=== PATIENT | female | born 1995 | race Caucasian/White ===

== ENCOUNTER 2017-02-14 21:08 | Emergency (ER) | payer SELFPAY ==
[~2017-02-14] VITALS: Ht 170.2 cm; Wt 71.3 kg
[2017-02-14 21:23] VITALS: TEMP 36.7; Ht 170.2 cm; Wt 71.3 kg
[2017-02-14] MEDS ORDERED: LIDOCAINE/EPINEPH/TETRACAINE 1 EA SYR EXT STA (21:38)
[2017-02-14] MEDS ORDERED: SODIUM CHLORIDE 0.9% 1000ML 1,000 ML IV STA (21:38)
[2017-02-14] MEDS ORDERED: ONDANSETRON INJ 2 MG/ML 2 ML VIAL IV STA (21:38)
[2017-02-14] MEDS ORDERED: HYDROmorphone INJ 1 MG/ML SYR IV STA ×2 (21:38→23:24)
[2017-02-14] MEDS ORDERED: LIDOCAINE/EPINEPHRINE 1% 20 ML VIAL INFIL STA (21:38)
[2017-02-14] MEDS ORDERED: ETON1IMP2 INTRAD (21:40)
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
[2017-02-14] MEDS ORDERED: BACITRACIN OINT 15 GM TUBE ONE (22:37)
[2017-02-14] MEDS ORDERED: METOCLOPRAMIDE HCL INJ 5 MG/ML 2 ML VIAL IV STA (23:24)
[2017-02-14] MEDS ORDERED: CEFAZOLIN SOD 1000MG/55 ML D5W IV STA (23:58)
[2017-02-15] MEDS ORDERED: PERCOCET HOME PACK PO ONE
[2017-02-15] MEDS ORDERED: CEPH500C PO (00:03)
[2017-02-15] MEDS ORDERED: OXYC-57 PO (00:05)
[2017-02-15 00:22] VITALS: BP 122/76; PULSE 92; O2SAT 99
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
== END 2017-02-15 00:44 | disposition home or self-care (01) ==
LOC: EDUNIT# 21:08 → C.EDB 21:12
DX: S80.211A Abrasion, right knee, initial encounter (principal); S51.031A Puncture wound without foreign body of right elbow, initial encounter; S40.211A Abrasion of right shoulder, initial encounter; V28.1XXA Motorcycle passenger injured in noncollision transport accident in nontraffic accident, initial encounter

== ENCOUNTER → 2017-02-17 | Outpatient (CLI) | payer OTHER ==
[~2017-02-17] MED LIST: CEPH500C PO; ETON1IMP2 INTRAD; OXYC-57 PO
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
== END | disposition home or self-care (01) ==
LOC: C.RDSM 11:52
PROVIDERS: ATTEND Physician Assistant
DX: S51.011A Laceration without foreign body of right elbow, initial encounter (principal); X58.XXXA Exposure to other specified factors, initial encounter

== ENCOUNTER 2021-10-09 13:43 | Inpatient (IN) ==
[2021-10-09] MEDS ORDERED: TERBUTALINE SULFATE 1 MG/ML VIAL ONE (13:58)
[2021-10-09] MEDS ORDERED: CITRIC ACID/SODIUM CITRATE 15 ML UDC PO SCH (14:00)
[2021-10-09] MEDS ORDERED: ceFAZolin 2000MG 2,000 MG/15 ML SYR IV SCH (14:00)
[2021-10-09] MEDS ORDERED: fentaNYL citrate 100 MCG/2 ML VIAL ONE (14:01)
[2021-10-09] MEDS ORDERED: MoRPHine SULFATE PF 1 MG/ML 10 ML AMP/VIAL ONE (14:02)
--- NOTE | 2021-10-09 14:02 | Anesthesiology Consultation ---
Date of Service October 09, 2021 Assessment & Plan (1) Encounter for pre-operative examination: Chart Review Chart Review: Acceptable Risk for Surgery and Patient NOT seen in Pre Admission Testing Consults Requested none History Allergies Allergy/AdvReac Type Severity Reaction Status Date / Time No Known Allergies Allergy Unverified 02/14/17 21:40 Medications Home Medications Medication Instructions Recorded Confirmed Last Taken ETONOGESTREL (NEXPLANON) 68 mg INTRAD UD #0 02/14/17 Unknown
[2021-10-09] MEDS ORDERED: OXYTOCIN 30 UNITS/500 ML BAG IV PRN (14:03)
[2021-10-09] MEDS ORDERED: LACTATED RINGER'S 1,000 ML IV PRN (14:03)
[2021-10-09] MEDS ORDERED: LACTATED RINGER'S 1,000 ML IV SCH ×4 (14:15→16:00)
[2021-10-09 14:37] LABS: Basophils # (auto) 0.03 K/uL (0-0.2); Basophils % (auto) 0.2 %; Eosinophils # (auto) 0.14 K/uL (0-0.5); Eosinophils % (auto) 1.1 %; Hematocrit (blood only) 36.9 % (37-47); Hemoglobin 12.8 g/dL (12.0-16.0); Immature Granulocytes # (auto) 0.08 K/uL (0.00-0.02); Immature Granulocytes % (auto) 0.6 %; Lymphocytes # (auto) 4.15 K/uL (1.2-3.4); Lymphocytes % (auto) 32.7 %; Mean Corpuscular Hemoglobin 32.8 pg (25-34); Mean Corpuscular Hgb Conc 34.7 g/dL (32-36); Mean Corpuscular Volume 94.6 fL (80-100); Mean Platelet Volume 9.9 fL (7.4-10.4); Monocytes # (auto) 1.03 K/uL (0.11-0.59); Monocytes % (auto) 8.1 %; Neutrophils # (auto) 7.27 K/uL (1.4-6.5); Neutrophils % (auto) 57.3 %; Platelet Count 283 K/uL (130-400); RDW Coefficient of Variation 12.7 % (11.5-14.5); RDW Standard Deviation 43.3 fL (36.4-46.3)
[2021-10-09] MEDS ORDERED: PROMETHAZINE HCL 25 MG in SODIUM CHLORIDE 0.9% 50 ML IV PRN (15:13)
[2021-10-09] MEDS ORDERED: NALOXONE HCL 0.4 MG/1 ML VIAL/CARP IV PRN (15:13)
[2021-10-09] MEDS ORDERED: ONDANSETRON INJ 2 MG/ML 2 ML VIAL IV PRN (15:13)
[2021-10-09] MEDS ORDERED: LACTATED RINGER'S 500 ML IV PRN (15:13)
[2021-10-09] MEDS ORDERED: MoRPHine SULFATE PF 1 MG/ML 10 ML AMP/VIAL INT SPINAL ONE (15:13)
[2021-10-09] MEDS ORDERED: NALOXONE HCL 0.08 MG in SYRINGE 1.8 ML IV PRN (15:13)
[2021-10-09] MEDS ORDERED: NALBUPHINE HCL INJ 10 MG/ML AMP IV PRN (15:13)
[2021-10-09] MEDS ORDERED: HYDROmorphone INJ 0.5 MG/0.5 ML SYR IV PRN (15:13)
[2021-10-09] MEDS ORDERED: ePHEDrine sulfate 50 MG/ML AMP IV PRN (15:13)
[2021-10-09] MEDS ORDERED: diphenhydrAMINE 50 MG/ML VIAL IV PRN (15:13)
[2021-10-09] MEDS ORDERED: NALOXONE HCL 1 MG in SODIUM CHLORIDE 0.9% 1000ML 1,000 ML IV PRN (15:13)
[2021-10-09] MEDS ORDERED: DC INTRASPINAL MORPHINE SCH (15:15)
[2021-10-09] MEDS ORDERED: SODIUM CHLORIDE 0.9% 1000ML 1,000 ML IV SCH (15:15)
[2021-10-09] MEDS ORDERED: NO NARCOTICS OR SEDATIVES SCH (15:15)
[2021-10-09] MEDS ORDERED: PHENYLEPHRINE 100MCG/ML 5ML SYR ONE (15:33)
[2021-10-09] MEDS ORDERED: ePHEDrine sulfate 50 MG/ML SYR ONE (15:33)
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
[2021-10-09] MEDS ORDERED: SENNA 8.6 MG TAB PO PRN (15:47)
[2021-10-09] MEDS ORDERED: BENZOCAINE 20% AER SPR 82.5 GM CAN EXT PRN (15:47)
[2021-10-09] MEDS ORDERED: DIPHTHERIA/TETANUS/PERTUSSIS 0.5 ML SYR/VIAL IM ONE (15:47)
[2021-10-09] MEDS ORDERED: HYDROCORTISONE ACETATE 25 MG SUPP PR PRN (15:47)
[2021-10-09] MEDS ORDERED: MAGNESIUM HYDROXIDE SUSP 30 ML UDC PO PRN (15:47)
--- NOTE | 2021-10-09 15:52 | Anesthesiology Progress Note ---
Date of Service October 09, 2021 Anesthesia Post Procedure Vital Signs Vital Signs: Pulse BP Pulse Ox 10/09/21 15:51 50 L 10/09/21 15:48 54 L 94 10/09/21 15:46 68 96 10/09/21 15:43 56 L 115/58 L 10/09/21 15:41 63 92 Transfer of Care Handoff Completed per policy Notes Mental Status: alert / awake / arousable and participated in evaluation Patient Amnestic to Procedure: Yes Nausea / Vomiting: adequately controlled Pain: adequately controlled Airway Patency, RR, SpO2: stable & adequate BP & HR: stable & adequate Hydration State: stable & adequate Anesthetic Complications: no major complications apparent and Pt Satisfied with anesthetic care
[2021-10-09] MEDS ORDERED: PATIENT'S HEIGHT AND/OR WEIGHT NEEDED SCH (16:15)
[2021-10-09] MEDS: KETOROLAC 30 MG/ML VIAL IV PRN (16:24)
[2021-10-09 16:53] LABS: Base Excess Cord Arterial Bld -3.8 mEq/L (-9-1.8); CO2 Cord Arterial Blood 60 mmHg (39.1-73.5); HCO3 Cord Arterial Blood 25 mmol/L (19.7-28.5); Oxygen Sat Cord Arterial Blood < 60.0 % (<60); PO2 Cord Arterial Blood 15 mmHg (4.1-31.7); pH Cord Arterial Blood 7.24 (7.1-7.38)
[2021-10-09 16:54] LABS: Base Excess Cord Venous Blood -3.6 mEq/L (-7.7-1.9); Cord Venous Blood HCO3 23 mmol/L (18.4-26.8); Cord Venous Blood PCO2 46 mmHg (30.4-57.2); Cord Venous Blood PO2 30 mmHg (14.1-43.3); Cord Venous Blood pH 7.31 (7.20-7.44)
[2021-10-09] MEDS: SIMETHICONE 80 MG CHEW PO SCH ×2 (17:35→21:44)
--- NOTE | 2021-10-09 17:38 | Operative Report (OR) ---
DATE OF SURGERY: 10/09/2021. This is a surgery note. INDICATION FOR SURGERY: This is a 26-year-old , at 34 weeks who has received care at [facility]. The patient experienced spontaneous rupture of membranes this morning and so presented to [facility]. On arrival to [facility] Labor and Delivery, she wa s found to be grossly ruptured. Cervical exam showed she was 8 cm dilated with a foot presentation. The patient therefore was sent to the operating room for immediate section. PREOPERATIVE DIAGNOSIS: rupture of membranes. POSTOPERATIVE DIAGNOSIS: rupture of membranes. OPERATION: Primary section. SURGEON: Nhan Jorge MD. DIRECTOR OF BUSINESS APPLICATIONS: Prisca Mckeon RN. ANESTHESIA: Spinal. DRAINS: None. ESTIMATED BLOOD LOSS: 600 mL. URINE OUTPUT: 100 mL. INTRAVENOUS FLUIDS: 1100 mL. SPECIMENS: Placenta, cord blood and cord gases. INTRAOPERATIVE COMPLICATIONS: None. PATIENT CONDITION: Stable. DISPOSITION: Postanesthesia care unit. ATTESTATION: I performed the entire procedure. DESCRIPTION OF PROCEDURE: The patient was taken to the operating room where she was prepped and drap ed in normal sterile fashion in dorsal position. Pfannenstiel incision was made and carried down to the fascia with a scalpel. Fascia was incised in the midline and extended laterally on both sides. Fascia was sharply dissected off the rectus abdominis muscle superiorly and inferiorly. The rectus a bdominis muscle was . Once inside the abdomen, peritoneum was bluntly as well. An Nirmal retractor was placed in the abdomen to help retract and provide good visualization. The vesicouterine peritoneum was sharply dissected off the lower segment of the uterus. Transverse i ncision was made with a scalpel from the uterus and extended laterally on both sides with bandage sci ssors. Breech maneuvers were performed and infant's buttocks were grabbed and delivered using breech maneuvers. Buttocks were delivered followed by the legs and upper abdomen, hands and head. There w as some initial difficulty delivering the buttocks because the patient was diabetic and infant was la rger than anticipated for 34 weeks. However, the was delivered and the cord was clamped and c ut and handed over to the waiting pediatric team. Please refer to pediatrics for resuscitation proce dures. Placenta was manually removed. Uterus was exteriorized and cleared of all clot and debris. Uterus w as closed in 2 layers using Vicryl stitch. There was good hemostasis post-repair. Uterus was return ed into the abdominal cavity after a copious amount of irrigation used to irrigate the abdomen. The vesicouterine peritoneum was reapproximated using plain suture. Peritoneum was closed using plai n suture. The fascia was closed in a running fashion using 1 PDS. Subcutaneous space was irrigated and approximated using plain suture. Skin was closed with ghassan. Abdomen was dressed with a JARAD dressing. All instruments were removed from the abdomen including sponges, needles, and retractors and accounte d for x2. The patient is sent to recovery in stable condition. Job ID: [id number]
[2021-10-09] MEDS: OXYTOCIN 20 UNITS in LACTATED RINGER'S 1,000 ML IV SCH (18:54)
[2021-10-09] MEDS: DOCUSATE SODIUM 100 MG CAP PO SCH (21:44)
[2021-10-10] MEDS: KETOROLAC 30 MG/ML VIAL IV PRN ×2 (00:12→06:02)
[2021-10-10] MEDS: OXYTOCIN 20 UNITS in LACTATED RINGER'S 1,000 ML IV SCH (03:04)
[2021-10-10] MEDS ORDERED: LACTATED RINGER'S 1,000 ML IV ONE (05:52)
[2021-10-10] MEDS ORDERED: CITRIC ACID/SODIUM CITRATE 15 ML UDC PO SCH (06:00)
[2021-10-10 07:03] LABS: Basophils # (auto) 0.02 K/uL (0-0.2); Basophils % (auto) 0.1 %; Eosinophils # (auto) 0.01 K/uL (0-0.5); Eosinophils % (auto) 0.1 %; Hematocrit (blood only) 31.8 % (37-47); Immature Granulocytes # (auto) 0.05 K/uL (0.00-0.02); Immature Granulocytes % (auto) 0.3 %; Lymphocytes # (auto) 1.78 K/uL (1.2-3.4); Lymphocytes % (auto) 11.9 %; Mean Corpuscular Hemoglobin 33.3 pg (25-34); Mean Corpuscular Hgb Conc 34.6 g/dL (32-36); Mean Corpuscular Volume 96.4 fL (80-100); Mean Platelet Volume 9.4 fL (7.4-10.4); Monocytes # (auto) 1.01 K/uL (0.11-0.59); Monocytes % (auto) 6.8 %; Neutrophils # (auto) 12.09 K/uL (1.4-6.5); Neutrophils % (auto) 80.8 %; Platelet Count 235 K/uL (130-400); RDW Standard Deviation 45.1 fL (36.4-46.3); White Blood Count 14.96 K/uL (4.8-10.8)
[2021-10-10] MEDS: DOCUSATE SODIUM 100 MG CAP PO SCH ×2 (09:09→21:00)
[2021-10-10] MEDS: cephALEXin 500 MG CAP PO SCH ×3 (09:09→18:10)
[2021-10-10] MEDS: metroNIDAZOLE 500 MG TAB PO SCH ×2 (09:09→15:43)
[2021-10-10] MEDS: PRENATAL VITAMIN 1 TAB PO SCH (09:09)
[2021-10-10] MEDS: FERROUS SULFATE 325 MG TAB PO SCH (09:10)
[2021-10-10] MEDS: SIMETHICONE 80 MG CHEW PO SCH ×4 (09:10→21:00)
[2021-10-10] MEDS ORDERED: diphenhydrAMINE Capsule 25 MG CAP PO PRN (09:13)
[2021-10-10] MEDS ORDERED: ONDANSETRON INJ 2 MG/ML 2 ML VIAL IV PRN (09:13)
[2021-10-10] MEDS ORDERED: PROMETHAZINE HCL 25 MG in SODIUM CHLORIDE 0.9% 50 ML IV PRN (09:13)
[2021-10-10] MEDS ORDERED: diphenhydrAMINE 50 MG/ML VIAL IV PRN (09:13)
--- NOTE | 2021-10-10 11:02 | Obstetrical Progress Note ---
Date of Service October 10, 2021 Subjective Ambulation: limited ambulation Voiding: no voiding problems Passing Gas:: Yes Diet Tolerance:: regular diet Lochia:: Small Feeding Type:: breast feeding Physical Exam Constitutional WD/WN, vitals as above Gastrointestinal (Abdomen) incision c/d/i abdomen soft and non-tender no edema neg Filiberto's Neurologic patellar DTR's 2+ bilat, sensation intact Psychiatric A+Ox3, euthymic affect Results & Data ([facility]) Vital Signs (Past 12 Hours) Vital Signs Temp Pulse Resp BP Pulse Ox 10/10/21 07:40 37.1 C 88 18 116/72 94 10/10/21 06:06 20 97 10/10/21 05:19 16 94 10/10/21 04:30 16 94 10/10/21 03:00 36.5 C 76 18 117/69 97 10/10/21 02:45 18 96 10/10/21 01:15 18 94 10/10/21 00:20 20 98 10/09/21 23:30 36.7 C 76 20 122/75 99
[2021-10-10] MEDS: IBUPROFEN 600 MG TAB PO PRN ×2 (12:18→18:09)
[2021-10-10] MEDS: oxyCODONE/ACETAMINOPHEN 5mg/325mg TAB PO PRN ×2 (13:34→18:09)
[2021-10-10] MEDS ORDERED: bisacodyL 5 MG TABEC PO SCH (20:00)
[2021-10-11] MEDS ORDERED: bisacodyL 10 MG SUPP PR PRN
[2021-10-11] MEDS: cephALEXin 500 MG CAP PO SCH ×5 (00:30→20:35)
[2021-10-11] MEDS: metroNIDAZOLE 500 MG TAB PO SCH ×4 (02:00→22:34)
[2021-10-11] MEDS: IBUPROFEN 600 MG TAB PO PRN ×4 (04:23→18:56)
[2021-10-11 06:14] LABS: Hematocrit (blood only) 31.6 % (37-47); Hemoglobin 10.9 g/dL (12.0-16.0)
[2021-10-11] MEDS: PRENATAL VITAMIN 1 TAB PO SCH (08:58)
[2021-10-11] MEDS: SIMETHICONE 80 MG CHEW PO SCH ×4 (08:58→20:35)
[2021-10-11] MEDS: oxyCODONE/ACETAMINOPHEN 5mg/325mg TAB PO PRN ×3 (08:59→18:55)
[2021-10-11] MEDS: FERROUS SULFATE 325 MG TAB PO SCH (08:59)
[2021-10-11] MEDS: DOCUSATE SODIUM 100 MG CAP PO SCH ×2 (08:59→20:35)
--- NOTE | 2021-10-11 13:43 | Obstetrical Progress Note ---
Date of Service October 11, 2021 Assessment & Plan Admission and Anticipated Discharge Date Admission Date: October 09, 2021 Subjective Patient is seen and examined. She feels well, no complaints. Pain is under control with oral meds. Ambulating without dizziness Voiding without difficulty Tolerating regular diet with out N&V Flatus + BM + Bleeding is minimal No fever/ chills/ CP/ SOB/ N&V/ Leg pain Breast and bottle feeding without problems Vital Signs Temp Pulse Resp BP Pulse Ox 10/11/21 04:00 37.1 C 69 18 123/80 10/10/21 20:00 36.5 C 73 18 134/88 10/10/21 16:35 36.9 C 86 20 118/76 97 Lab Results 10/09/21 10/09/21 10/09/21 Range/Units 14:04 14:04 15:47 WBC 12.70 H (4.8-10.8) K/uL RBC 3.90 L (4.2-5.4) M/uL Hgb 12.8 (12.0-16.0) g/dL Hct 36.9 L (37-47) % MCV 94.6 (80-100) fL MCH 32.8 (25-34) pg MCHC 34.7 (32-36) g/dL RDW Std Deviation 43.3 (36.4-46.3) fL RDW Coeff of Yvonne 12.7 (11.5-14.5) % Plt Count 283 (130-400) K/uL MPV 9.9 (7.4-10.4) fL Immature Gran % (Auto) 0.6 % Neut % (Auto) 57.3 % Lymph % (Auto) 32.7 % [place] % (Auto) 8.1 % Eos % (Auto) 1.1 % Baso % (Auto) 0.2 % Neut # (Auto) 7.27 H (1.4-6.5) K/uL Lymph # (Auto) 4.15 H (1.2-3.4) K/uL [place] # (Auto) 1.03 H (0.11-0.59) K/uL Eos # (Auto) 0.14 (0-0.5) K/uL Baso # (Auto) 0.03 (0-0.2) K/uL Immature Gran # (Auto) 0.08 H (0.00-0.02) K/uL Cord ABG pH 7.24 (7.1-7.38) Cord ABG pCO2 60 (39.1-73.5) mmHg Cord ABG pO2 15 (4.1-31.7) mmHg Cord ABG HCO3 25 (19.7-28.5) mmol/L Cord ABG Base Excess -3.8 (-9-1.8) mEq/L Cord ABG O2 Sat < 60.0 (<60) % Cord VBG pH (7.20-7.44) Cord VBG pCO2 (30.4-57.2) mmHg Cord VBG pO2 (14.1-43.3) mmHg Cord VBG HCO3 (18.4-26.8) mmol/L Cord VBG Base Excess (-7.7-1.9) mEq/L Cord VBG O2 Sat (<68) % Barometric Pressure 735.1 mm/Hg Blood Gas Comments [place]AN SARS-CoV-2, RNA, NAAT (NEGATIVE) Blood Type O Positive Antibody Screen NEGATIVE 10/09/21 10/09/21 10/10/21 Range/Units 15:47 Unknown 06:27 WBC 14.96 H (4.8-10.8) K/uL RBC 3.30 L (4.2-5.4) M/uL Hgb 11.0 L (12.0-16.0) g/dL Hct 31.8 L (37-47) % MCV 96.4 (80-100) fL MCH 33.3 (25-34) pg MCHC 34.6 (32-36) g/dL RDW Std Deviation 45.1 (36.4-46.3) fL RDW Coeff of Yvonne 13.0 (11.5-14.5) % Plt Count 235 (130-400) K/uL MPV 9.4 (7.4-10.4) fL Immature Gran % (Auto) 0.3 % Neut % (Auto) 80.8 % Lymph % (Auto) 11.9 % [place] % (Auto) 6.8 % Eos % (Auto) 0.1 % Baso % (Auto) 0.1 % Neut # (Auto) 12.09 H (1.4-6.5) K/uL Lymph # (Auto) 1.78 (1.2-3.4) K/uL [place] # (Auto) 1.01 H (0.11-0.59) K/uL Eos # (Auto) 0.01 (0-0.5) K/uL Baso # (Auto) 0.02 (0-0.2) K/uL Immature Gran # (Auto) 0.05 H (0.00-0.02) K/uL Cord ABG pH (7.1-7.38) Cord ABG pCO2 (39.1-73.5) mmHg Cord ABG pO2 (4.1-31.7) mmHg Cord ABG HCO3 (19.7-28.5) mmol/L Cord ABG Base Excess (-9-1.8) mEq/L Cord ABG O2 Sat (<60) % Cord VBG pH 7.31 (7.20-7.44) Cord VBG pCO2 46 (30.4-57.2) mmHg Cord VBG pO2 30 (14.1-43.3) mmHg Cord VBG HCO3 23 (18.4-26.8) mmol/L Cord VBG Base Excess -3.6 (-7.7-1.9) mEq/L Cord VBG O2 Sat 68.0 (<68) % Barometric Pressure 733.6 mm/Hg Blood Gas Comments [place] SARS-CoV-2, RNA, NAAT NEGATIVE (NEGATIVE) Blood Type Antibody Screen 10/11/21 Range/Units 06:00 WBC (4.8-10.8) K/uL RBC (4.2-5.4) M/uL Hgb 10.9 L (12.0-16.0) g/dL Hct 31.6 L (37-47) % MCV (80-100) fL MCH (25-34) pg MCHC (32-36) g/dL RDW Std Deviation (36.4-46.3) fL RDW Coeff of Yvonne (11.5-14.5) % Plt Count (130-400) K/uL MPV (7.4-10.4) fL Immature Gran % (Auto) % Neut % (Auto) % Lymph % (Auto) % [place] % (Auto) % Eos % (Auto) % Baso % (Auto) % Neut # (Auto) (1.4-6.5) K/uL Lymph # (Auto) (1.2-3.4) K/uL [place] # (Auto) (0.11-0.59) K/uL Eos # (Auto) (0-0.5) K/uL Baso # (Auto) (0-0.2) K/uL Immature Gran # (Auto) (0.00-0.02) K/uL Cord ABG pH (7.1-7.38) Cord ABG pCO2 (39.1-73.5) mmHg Cord ABG pO2 (4.1-31.7) mmHg Cord ABG HCO3 (19.7-28.5) mmol/L Cord ABG Base Excess (-9-1.8) mEq/L Cord ABG O2 Sat (<60) % Cord VBG pH (7.20-7.44) Cord VBG pCO2 (30.4-57.2) mmHg Cord VBG pO2 (14.1-43.3) mmHg Cord VBG HCO3 (18.4-26.8) mmol/L Cord VBG Base Excess (-7.7-1.9) mEq/L Cord VBG O2 Sat (<68) % Barometric Pressure mm/Hg Blood Gas Comments SARS-CoV-2, RNA, NAAT (NEGATIVE) Blood Type Antibody Screen PE: General: Alert, orientedx3, NAD CVS: S1S2 RRR Lungs; CTAB Abd: soft, NT, ND, BS+, fundus firm, below Umbilicus Incision/ JARAD dressing: Clean, dry, intact Perineum intact, Lochia rubra minimal Ext; NT, no edema AP: 26 yo s/p C Section, pod# 2 VSS Afebrile doing well Continue routine postop care Encourage ambulation, PO intake All questions were answered D/C home tomorrow Results & Data ([facility]) Vital Signs (Past 12 Hours) Vital Signs Temp Pulse Resp BP 10/11/21 04:00 37.1 C 69 18 123/80
[2021-10-12] MEDS: IBUPROFEN 600 MG TAB PO PRN ×2 (03:41→11:34)
[2021-10-12] MEDS: oxyCODONE/ACETAMINOPHEN 5mg/325mg TAB PO PRN ×2 (03:41→11:35)
[2021-10-12] MEDS: metroNIDAZOLE 500 MG TAB PO SCH (06:18)
[2021-10-12] MEDS: cephALEXin 500 MG CAP PO SCH (07:25)
[2021-10-12] MEDS: PRENATAL VITAMIN 1 TAB PO SCH (07:26)
[2021-10-12] MEDS: DOCUSATE SODIUM 100 MG CAP PO SCH (07:26)
[2021-10-12] MEDS: FERROUS SULFATE 325 MG TAB PO SCH (07:26)
[2021-10-12] MEDS: SIMETHICONE 80 MG CHEW PO SCH (07:26)
--- NOTE | 2021-10-12 09:05 | Obstetrical Progress Note ---
Date of Service October 12, 2021 Subjective Ambulation: ambulating normally Voiding: no voiding problems Passing Gas:: Yes Diet Tolerance:: regular diet Lochia:: Small Feeding Type:: breast feeding Current Pain Level(1-10): 0 doing well plans for d/c Physical Exam Constitutional WD/WN, vitals as above Skin no rashes, warm and dry Neurologic patellar DTR's 2+ bilat, sensation intact Genitourinary abdomen soft and non-tender incision c/d/i mild edema neg Filiberto's fo9r d/c Results & Data ([facility]) Vital Signs (Past 12 Hours) Vital Signs Temp Pulse Resp BP 10/12/21 07:30 36.5 C 71 20 137/79 10/11/21 23:45 37.1 C 71 16 124/79 Laboratory Results Laboratory Results - last 48 hr 10/11/21 06:00 Hgb 10.9 L Hct 31.6 L
--- NOTE | 2021-10-15 15:43 | Discharge Summary (DS) ---
DATE OF ADMISSION: 10/09/2021 DATE OF DISCHARGE: 10/12/2021 CHIEF COMPLAINT: premature rupture of membranes. HISTORY OF PRESENT ILLNESS: This is a 26-year-old who presented to labor and delivery on 10/09 She was 34 weeks and had received care at [facility]. The patient experienc ed spontaneous rupture of membranes that morning and presented to [facility]. [facility] she was found to be grossly ruptured. Cervical exam showed she was 8 c m dilated with footling presentation. The patient therefore underwent a section. Details o f the surgery and pediatric information in the respective records. Surgery was otherwise unremarkabl e. The patient did well, met all milestones in recovery. On postoperative day #1, her diet was adva nced and patient was discharged home in stable condition on postop day 3, which was 10/12/2021. PAST MEDICAL HISTORY: None. PAST SURGICAL HISTORY: None. SOCIAL HISTORY: The patient is . Denies drug or tobacco use or alcohol use. FAMILY HISTORY: Noncontributory. ALLERGIES: No known drug allergies. REVIEW OF SYSTEMS: Negative except as dictated in the HPI. PHYSICAL EXAMINATION: VITAL SIGNS: On 10/12/2021 showed blood pressure 137/79, pulse 71, respiration of 20, temperature 36 .5. HEART: S1 and S2, regular rhythm and rate. LUNGS: Clear to auscultation bilaterally. ABDOMEN: Nontender, nondistended, positive bowel sounds. Incision was clean, dry and intact. EXTREMITIES: No cyanosis, clubbing or edema. LABORATORIES: On 10/11/2021 showed hemoglobin of 10.9, hematocrit of 31.6. CONDITION ON DISCHARGE: Stable. OPERATIONS: section for breech presentation. DISCHARGE DIAGNOSIS: Postoperative after section for breech presentation. PLAN ON DISCHARGE: The patient is discharged home with instructions regarding activity, diet, and [facility] appointment. Job ID: [id number]
== END 2021-10-12 13:15 | disposition home or self-care (01) | DRG 788 ==
LOC: OPB 13:43 → 4S1 13:48 → 4S2 19:17